=== PATIENT | male | born 1955 | race Caucasian/White ===

== ENCOUNTER 2019-12-14 04:59 | Day surgery (SDC) | payer OTHER ==
[2019-12-13 09:45] VITALS: BMI 21.8
--- OUTSIDE RECORDS SUMMARY | 2019-12-14 05:03 | XMS ---
:1955 [facility] Care Team Providers Name Role Phone THIAGO CAN MD Unavailable Unavailable COURT Unavailable Unavailable [id number] Unavailable Unavailable Re-disclosure Warning The records that you are about to access may contain information from federally- assisted alcohol or drug abuse programs. If such information is present, then the following federally mandated warning applies: This information has been disclosed to you from records protected by federal confidentiality rules (42 CFR part 2). The federal rules prohibit you from making any further disclosure of this information unless further disclosure is expressly permitted by the written consent of the person to whom it pertains or as otherwise permitted by 42 CFR part 2. A general authorization for the release of medical or other information is NOT sufficient for this purpose. The Federal rules restrict any use of the information to criminally investigate or prosecute any alcohol or drug abuse patient.The records that you are about to access may contain highly sensitive health information, the redisclosure of which is protected by Article 27-F of the [facility] Public Health law. If you continue you may haveaccess to information: Regarding HIV / AIDS; Provided by facilities licensed or operated by the [facility] Office of Mental Health; or Provided by the [facility] Office for People With Developmental Disabilities. If such information is present, then the following [facility] mandated warning applies: This information has been disclosed to you from confidential records which are protected by state law. State law prohibits you from making any further disclosure of this information without the specific written consent of the person to whom it pertains, or as otherwise permitted by law. Any unauthorized further disclosure in violation of state law may result in a fine or fdc sentence or both. A general authorization for the release of medical or other information is NOT sufficient authorization for further disclosure. Encounters Encounter Providers Location Date Indications Data Source(s ) Outpatient Attender: THIAGO [facility] 03/20/2019 Sarmad PHELPSdmitter: JUAN MIGUEL 11:23:[address] EST - 10/23/2019 10:36:00 AM EDT Patient discharged. Attender: 03/20/2019 [id number] 11:23:00 AM [id number] Outpatient Attender: THIAGO Schwabitter: STWon 9 [facility] 12:35:00 PM [facility] Hospital Attender: 03/07/2019 [id number] 12:35:00 PM [facility]_[id number] Insurance Providers Payer name Policy type Policy ID Covered Covered republican's Policy P michele / Coverage republican ID relationship to Kim Inf ormation type kim AM TRUST [id number] [employer] [id number] [id number] [facility] [id number] Self [id number] PLAN SELF PAY 000 Self 000 REDUCTION SELF PAY 0 Self 0 SELF PAY [address] [facility] [id number] Self [id number] PLAN Results ID Date Data Source [id number] 12/09/2019 09:17:00 AM EDT [facility] Name Value Range Interpretation Description Data Sup porting Code Source(s) Document(s ) SARS [facility] coronavirus 2 RNA This lab was ordered by [facility] and reported by [facility]. Procedure
[2019-12-14] MEDS ORDERED: LIDOCAINE HCL 1%, 10 MG/ML (20ML VIAL) ONE (12:31)
[2019-12-14] MEDS ORDERED: MIDAZOLAM HCL 2 MG/2 ML SINGLE DOSE VIAL ONE ×2 (13:00)
[2019-12-14] MEDS ORDERED: ROPIVACAINE HCL 0.5% 30ML VIAL ONE (13:01)
[2019-12-14] MEDS ORDERED: PROPOFOL 20 ML ONE (13:12)
[2019-12-14] MEDS ORDERED: DEXAMETHASONE SOD PHOSPHATE 4 MG/1 ML VIAL ONE (13:12)
[2019-12-14] MEDS ORDERED: LIDOCAINE HCL/PF 2% SDV 5ML VIAL ONE (13:12)
[2019-12-14] MEDS ORDERED: ceFAZolin SODIUM 1 GM VIAL ONE (14:01)
[2019-12-14] MEDS ORDERED: ceFAZolin SODIUM 1 GM VIAL IVPB ONE (14:02)
[2019-12-14] MEDS ORDERED: BENZOIN/ALOE VERA/STORAX/TOLU 58 ML BOTTLE ONE (14:14)
[2019-12-14] MEDS ORDERED: KETOROLAC TROMETHAMINE 30 MG/1 ML VIAL ONE (14:41)
[2019-12-14] MEDS ORDERED: hydrALAZINE HCL 20 MG/ML VIAL ONE (15:44)
[2019-12-14] MEDS ORDERED: LACTATED RINGERS SOLUTION 1,000 ML IV SCH (15:45)
[2019-12-14] MEDS ORDERED: oxyCODONE HCL 5 MG TABLET PO PRN ×2 (15:45)
[2019-12-14] MEDS ORDERED: ONDANSETRON 4 MG/2 ML VIAL IVPUSH PRN (15:45)
[2019-12-14] MEDS ORDERED: hydrALAZINE HCL 20 MG/ML VIAL IVPUSH ONE ×2 (15:45→15:46)
[2019-12-14 17:03] VITALS: PULSE 81
[2019-12-14 18:34] VITALS: BP 137/83; TEMP 97.4
--- NOTE | 2019-12-17 16:01 | OP ---
Operative Note - Note: Operative Date: 12/14/19 Pre-Operative Diagnosis: right inguinal hernia and right lower abdomen skin lesion Operation: repair RIH w/mesh and excision of skin lesion Findings: lipoma of the cord and weak floor and dermatofibroma of skin Surgeon: Osmar Curry Breaker Mechanic: John Paul Gibbs Anesthesia: General Specimens Removed: lipoma and skin lesionm Estimated Blood Loss (mls): 10
--- NOTE | 2019-12-18 13:01 | OP ---
DATE OF OPERATION: 12/14/2019 PREOPERATIVE DIAGNOSIS: Right inguinal hernia and skin lesion of the right lower abdomen. POSTOPERATIVE DIAGNOSIS: Right inguinal hernia and skin lesion of the right lower abdomen. PROCEDURE: Repair right inguinal hernia with mesh and excision of skin lesion of the right lower abdomen. SURGEON: Osmar Curry MD RESEARCH ATTORNEY: John Paul Gibbs PA-C ANESTHESIA: General with a block. OPERATIVE FINDINGS: There was a large lipoma of the cord and a weak floor of the inguinal canal and a pedunculated dermatofibroma of the skin of the lower abdomen. The rest of the findings were unremarkable. PROCEDURE: The patient was placed on the operating table in the supine position and, after the induction of general anesthesia, the patient's lower abdomen was prepped with ChloraPrep and draped in sterile fashion. A timeout was taken and a transverse groin incision was mapped out. Incision was made with a scalpel and taken down through subcutaneous tissue and Obey's fascia. The external oblique fascia was divided proximally and distally in the direction of its fibers and to the external ring. The cord structures and nerve were elevated at the pubic tubercle and a Danika drain placed around them for retraction and identification purposes. The external spermatic fascia was opened revealing a large lipoma of the cord which was traced back to the internal ring where it was clamped, excised and the pedicle ligated with 2-0 Vicryl suture. There was no evidence of an indirect hernia sac. The floor of the inguinal canal was then repaired by fashioning a piece of ProGrip mesh into the defect and anchoring it at the pubic tubercle, shelving edge and conjoint tendon respectively with interrupted 2-0 Prolene. A keyhole was created for the cord structures and the tails of the mesh brought above the level of the internal ring and crossed and anchored there with interrupted 2-0 Prolene. Hemostasis was checked for and noted to be good and then the wound was copiously irrigated with sterile saline. The cord structures and nerve were returned to their normal anatomic position and hemostasis verified again. The external oblique fascia was then closed using continuous 2-0 Vicryl recreating the external ring. Obey's fascia was reapproximated with interrupted 2-0 Vicryl, the deep dermis with interrupted 3-0 Vicryl, and the skin edges with 4-0 Monocryl in a subcuticular fashion. Dermabond was placed, and then using a scalpel the pedunculated dermatofibroma above the incision was excised with a scalpel and sent for pathological examination. The skin defect was closed with 2 interrupted subcuticular 4-0 Monocryl sutures and then the wound dressed with Dermabond as well. The patient was then aroused from general anesthesia and transferred to the postanesthesia care unit in stable condition awake and alert. ESTIMATED BLOOD LOSS: 10 mL REPLACEMENTS: Crystalloid. DRAINS: None. SPECIMENS: Lipoma of the cord and skin lesion to Pathology. I, Osmar Curry, was physically present in the operating room from the time the patient was placed on the operating table until he was transferred to the postanesthesia care unit in my accompaniment. MD MANUEL Syed/[id number] MTDD
--- NOTE | 2019-12-19 18:18 | PATH ---
Surgical Pathology Report Patient Name: VINAY GUALLPA [facility]. Rec. #: [id number] /Age/Gender: 1955 (Age: 64) / M Account: [id number] Location: [facility] SURGICAL Taken: 12/14/2019 Received: 12/15/2019 Reported: 12/19/2019 Physicians: Osmar Curry MD Specimen(s) Received A: RIGHT HERNIA FAT B: RIGHT GROIN SKIN LESION Clinical History Right inguinal hernia Final Diagnosis A. HERNIA FAT, RIGHT, INGUINAL HERNIA REPAIR: MATURE FIBROADIPOSE TISSUE. B. SKIN LESION, GROIN, RIGHT, EXCISION: FIBROEPITHELIAL POLYP. Electronically Signed Zaira Esparza M.D. Gross Description A. Received in formalin labeled "right hernia fat," is a 5.0 x 3.7 x 2.0 cm ward-duenas portion of fibrofatty tissue. No discrete areas of hemorrhage or necrosis are identified. Stove Installer sections are submitted in one cassette. B. Received in formalin labeled "right groin skin lesion," is a 1.5 x 0.7 x 0.4 cm ward duenas, polypoid portion of skin. The base is inked blue and the specimen is bisected. The specimen is entirely submitted in one cassette. 12/18/2019 [facility]12/18/2019
== END 2019-12-14 18:10 | disposition home or self-care (01) ==
LOC: JASU-SURG 04:59
PROVIDERS: ATTEND Surgery
PROC: 0HB7XZZ Excision of Abdomen Skin, External Approach (ICD-10-PCS; 2019-12-14)
PROC: 0YU50JZ Supplement Right Inguinal Region with Synthetic Substitute, Open Approach (ICD-10-PCS; principal; 2019-12-14 12:00)
DX: K40.90 Unilateral inguinal hernia, without obstruction or gangrene, not specified as recurrent (principal); D23.5 Other benign neoplasm of skin of trunk
CPT/HCPCS: 88302-TC; 88304-TC; 94760